=== PATIENT | female | born 1985 | race Caucasian/White ===

== ENCOUNTER 2019-08-08 11:59 | Inpatient (IN) | payer OTHER ==
[~2019-08-08] VITALS: Ht 154.9 cm; Wt 75.1 kg
[2019-08-08 12:41] LABS: BASOPHIL % 0.1 % (0-2); PLATELET COUNT 361 x10^3mcL (130-400); RED CELL DISTRIBUTION WIDTH 12.3 % (11.5-14.5)
[2019-08-08 14:17] LABS: CARBON DIOXIDE 26 mmol/L (21-32); CHLORIDE SERUM 101 mmol/L (98-107); CREATININE SERUM 0.9 mg/dL (0.6-1.0); GFR1 > 60 mL/min; GLUCOSE SERUM 146 mg/dL (74-106); POTASSIUM SERUM 3.3 mmol/L (3.5-5.1); SODIUM SERUM 138 mmol/L (136-145)
[2019-08-08 14:18] LABS: ALBUMIN 4.1 g/dL (3.4-5.0); ALT/SGPT 25 U/L (14-59); AST/SGOT 13 U/L (15-37); BILIRUBIN TOTAL 0.9 mg/dL (0.20-1.00); CALCIUM 8.9 mg/dL (8.5-10.1); TOTAL PROTEIN, SERUM 8.2 g/dL (6.4-8.2)
[2019-08-08 14:19] LABS: ALKALINE PHOSPHATASE 89 U/L (46-116)
[2019-08-08 14:30] LABS: microscopic required? YES; urine erythrocyte 3+ (NEGATIVE)
[2019-08-08 14:35] LABS: LIPASE 64 IU/L (73-393)
[2019-08-08 15:02] LABS: AMPHETAMINE QUAL UR POSITIVE (See below)
[2019-08-08 17:16] VITALS: BP 106/68
[2019-08-08 17:19] VITALS: Ht 154.9 cm; Wt 75.1 kg
[2019-08-08 18:04] LABS: FREE T4 1.14 ng/dL (0.76-1.46); FREE THYROXINE INDEX 2.3 ug/dL (1.4-4.5); T4(THYROXINE) 8.7 ug/dL (4.7-13.3)
[2019-08-08 18:35] LABS: T3 TOTAL 1.1 ng/mL
[2019-08-08 19:00] LABS: MAGNESIUM 2.1 mg/dL (1.8-2.4); PHOSPHOROUS 3.2 mg/dL (2.5-4.9)
[2019-08-08 19:03] LABS: CHOLESTEROL/HDL RATIO 3.9
[2019-08-08 19:07] VITALS: BP 101/62
[2019-08-08 20:30] VITALS: BP 90/51
[2019-08-08 22:22] VITALS: BP 97/71
[2019-08-09 05:35] VITALS: BP 98/53
[2019-08-09 07:09] LABS: BASOPHIL % 0.3 % (0-2); PLATELET COUNT 290 x10^3mcL (130-400)
[2019-08-09 08:11] LABS: CALCIUM 8.6 mg/dL (8.5-10.1); CARBON DIOXIDE 21.7 mmol/L (21-32); CHLORIDE SERUM 108 mmol/L (98-107); CREATININE SERUM 0.6 mg/dL (0.6-1.0); GFR1 > 60 mL/min; GLUCOSE SERUM 99 mg/dL (74-106); POTASSIUM SERUM 3.9 mmol/L (3.5-5.1); SODIUM SERUM 140 mmol/L (136-145)
[2019-08-09 09:13] VITALS: BP 104/67
[2019-08-09 12:37] VITALS: BP 102/63
[2019-08-09 17:42] VITALS: BP 106/55
[2019-08-09 21:05] VITALS: BP 90/57
[2019-08-10 05:22] LABS: CALCIUM 8.4 mg/dL (8.5-10.1); CARBON DIOXIDE 26.2 mmol/L (21-32); CHLORIDE SERUM 109 mmol/L (98-107); CREATININE SERUM 0.6 mg/dL (0.6-1.0); GFR1 > 60 mL/min; GLUCOSE SERUM 102 mg/dL (74-106); MAGNESIUM 2.1 mg/dL (1.8-2.4); PHOSPHOROUS 3.7 mg/dL (2.5-4.9); POTASSIUM SERUM 3.7 mmol/L (3.5-5.1); SODIUM SERUM 143 mmol/L (136-145)
[2019-08-10 06:09] VITALS: BP 99/54
[2019-08-10 06:42] LABS: BASOPHIL % 0.5 % (0-2); PLATELET COUNT 284 x10^3mcL (130-400); RED CELL DISTRIBUTION WIDTH 12.7 % (11.5-14.5)
[2019-08-10 09:13] VITALS: BP 101/68
[2019-08-10] MEDS ORDERED: BACDS PO (10:41)
[2019-08-10 13:03] VITALS: BP 101/68
== END 2019-08-10 14:05 | disposition home or self-care (01) | DRG 720 ==
LOC: ED 11:59 → MU 16:04 → DU 16:04 → MU 17:05 → DU 20:35
PROVIDERS: Emergency Medicine; ADMIT Student in an Organized Health Care Education/Training Program
DX: A41.9 Sepsis, unspecified organism (principal); F15.20 Other stimulant dependence, uncomplicated; N10 Acute pyelonephritis; E87.6 Hypokalemia; Z68.30 Body mass index [BMI] 30.0-30.9, adult; Z90.710 Acquired absence of both cervix and uterus; Z90.49 Acquired absence of other specified parts of digestive tract; Z98.51 Tubal ligation status; Z71.51 Drug abuse counseling and surveillance of drug abuser
CPT/HCPCS: 84439; G0378; J0696; J1885; J1956; J7030; J7060; Q0092